=== PATIENT | female | born 1995 | race Caucasian/White ===

== ENCOUNTER 2022-09-20 08:58 | Outpatient (CLI) | payer OTHER, SELFPAY | END 2022-09-20 08:59 | disposition home or self-care (01) | PROVIDERS: PCP Family Medicine; Visit Provider Physician Assistant | DX: Z01.419 Encounter for gynecological examination (general) (routine) without abnormal findings (principal); E78.00 Pure hypercholesterolemia, unspecified; Z13.6 Encounter for screening for cardiovascular disorders; Z13.1 Encounter for screening for diabetes mellitus | CPT/HCPCS: 80061; 82947 ==

== ENCOUNTER 2023-08-31 11:37 | Outpatient (CLI) | payer OTHER, SELFPAY ==
[2023-08-31 13:26] LABS: Albumin* 4.3 g/dL (3.3-5.0)
[2023-08-31 13:29] LABS: Alanine Aminotransferase* 16 U/L (4-35); Alkaline Phosphatase* 82 U/L (40-150); Aspartate Amino Transferase* 21 U/L (12-35); Bilirubin Direct* 0.4 mg/dL (0.0-0.5); Bilirubin Total* 0.6 mg/dL (0.1-1.5); Total Protein* 7.1 g/dL (6.0-8.3)
== END 2023-08-31 11:38 | disposition home or self-care (01) ==
LOC: LAB 11:53
PROVIDERS: PCP Family Medicine; Visit Provider Dermatology
DX: Z01.419 Encounter for gynecological examination (general) (routine) without abnormal findings (principal); L70.9 Acne, unspecified; E78.00 Pure hypercholesterolemia, unspecified; Z13.9 Encounter for screening, unspecified
CPT/HCPCS: 36415; 80061; 80076

== ENCOUNTER 2024-09-04 08:23 | Outpatient (CLI) | payer BC, SELFPAY | END 2024-09-04 08:24 | disposition home or self-care (01) | LOC: NFLDREF 09-05 04:02 | PROVIDERS: PCP Family Medicine; Referring Provider Family Medicine; Visit Provider Physician Assistant | DX: E01.0 Iodine-deficiency related diffuse (endemic) goiter (principal); Z13.6 Encounter for screening for cardiovascular disorders; Z13.0 Encounter for screening for diseases of the blood and blood-forming organs and certain disorders involving the immune mechanism | CPT/HCPCS: 80061; 80076; 82947 ==